=== PATIENT | male | born 1965 | race Caucasian/White ===

== ENCOUNTER 2017-06-26 16:54 | Emergency (ER) | payer BC ==
--- NOTE | 2017-06-26 17:56 | EDM.PDOC ---
ED HPI GENERAL MEDICAL PROBLEM - General Stated Complaint: WEAKNESS, PAIN IN NECK Time Seen by Provider: 06/26/17 16:54 Source of Information: Reports: Patient History Limitations: Reports: No Limitations - History of Present Illness INITIAL COMMENTS - FREE TEXT/NARRATIVE: 52 years old w m in prev healthy condition, started to take Hydroxycut, a weight loosing medication, a fwe days ago. Yesterday, he was working out side, using a sledgehammer, coming to the ed this pm because he felt some back pain, r neck pain, felt weak and tired on the computer. No N/V/D f/c or any other acute medical issues. BP 113/86 pulse 58 RR 16, pulse ox 100 on RA Temp 36.6 Onset: Today Onset Date: 06/26/17 Onset Time: 15:00 Duration: Hour(s): Location: Reports: Generalized Quality: Reports: Dull Severity: Mild Improves with: Reports: None Worsens with: Reports: None Context: Reports: Other (taking weightloosing agents) Associated Symptoms: Reports: Loss of Appetite, Weakness Posterior Chest Pain Score (Numeric/FACES): 3 - Related Data Allergies Allergy/AdvReac Type Severity Reaction Status Date / Time Penicillins Allergy Rash Verified 06/26/17 18:29 Home Meds: Home Meds Hydroxycut 1 tab PO TID 06/26/17 [History] ED ROS GENERAL - Review of Systems Review Of Systems: See Below Constitutional: Reports: Weakness, Other (dizzy off on on, minimal) HEENT: Reports: Other (lat neck dyscomfort off/on) Respiratory: Reports: No Symptoms Cardiovascular: Reports: No Symptoms Endocrine: Reports: No Symptoms GI/Abdominal: Reports: No Symptoms : Reports: No Symptoms Musculoskeletal: Reports: Muscle Pain (off and on) Skin: Reports: No Symptoms Neurological: Reports: Dizziness (off and on) Psychiatric: Reports: No Symptoms Hematologic/Lymphatic: Reports: No Symptoms Immunologic: Reports: No Symptoms ED EXAM, GENERAL - Physical Exam Exam: See Below Exam Limited By: No Limitations General Appearance: Alert, WD/WN, No Apparent Distress Eye Exam: Bilateral Eye: Normal Inspection Ears: Normal External Exam Ear Exam: Bilateral Ear: Auricle Normal Nose: Normal Inspection, Normal Mucosa, No Blood Throat/Mouth: Normal Inspection, Normal Lips, Normal Teeth, Normal Gums, Normal Oropharynx, Normal Voice, No Airway Compromise Head: Atraumatic, Normocephalic Neck: Normal Inspection, Supple, Non-Tender, Full Range of Motion Respiratory/Chest: No Respiratory Distress, Lungs Clear, Normal Breath Sounds, No Accessory Muscle Use, Chest Non-Tender Cardiovascular: Normal Peripheral Pulses, Regular Rate, Rhythm, No Edema, No Gallop, No JVD, No Murmur, No Rub Peripheral Pulses: 2+: Radial (L), Radial (R) GI/Abdominal: Normal Bowel Sounds, Soft, Non-Tender, No Organomegaly, No Distention, No Abnormal Bruit, No Mass (Male) Exam: Deferred Rectal (Males) Exam: Deferred Back Exam: Normal Inspection, Full Range of Motion Extremities: Normal Inspection, Normal Range of Motion, Non-Tender, No Pedal Edema, Normal Capillary Refill Neurological: Alert, Oriented, CN II-XII Intact, Normal Cognition, Normal Gait, Normal Reflexes, No Motor/Sensory Deficits Psychiatric: Normal Affect, Normal Mood Skin Exam: Warm, Dry, Intact, Normal Color, No Rash Lymphatic: No Adenopathy EKG INTERPRETATION EKG Date: 06/26/17 Time: 17:35 Rhythm: NSR Rate (Beats/Min): 56 [place]: Normal P-Wave: Present QRS: Normal ST-T: Normal QT: Normal Comparison: NA - No Prior EKG Course - Vital Signs Text/Narrative:: 52 years old w m in prev healthy condition, started to take Hydroxycut, a weight loosing medication, a fwe days ago. Yesterday, he was working out side, using a sledgehammer, coming to the ed this pm because he felt some back pain, r neck pain, felt weak and tired on the computer. No N/V/D f/c or any other acute medical issues. BP 113/86 pulse 58 RR 16, pulse ox 100 on RA Temp 36.6 PE: WNWD WM NAD, neg Labs: CBC, BMP WNL, CK was 229(mildly up), UDS was neg UA was neg EKG: NSR Imaging: Not indicated Impression: well check. CK mildly up Tx: None Reexam: All symptoms pt presented with subsided. Plan: D/C with instructions Last Recorded V/S: Last Vital Signs Temp 36.6 C 06/26/17 19:30 Pulse 60 06/26/17 19:30 Resp 14 06/26/17 19:30 BP 106/65 06/26/17 19:30 Pulse Ox 100 06/26/17 19:30 Orthostatic Blood Pressure [ 114/74 Supine] - Orders/Labs/Meds Orders: Active Orders 24 hr Category Date Time Status EKG Documentation Completion [RC] ASDIRECTED Care 06/26/17 17:09 Active Orthostatic Vital Signs [RC] ASDIRECTED Care 06/26/17 17:10 Active EKG 12 Lead [EK] Routine Ther 06/26/17 17:07 Ordered Labs: Laboratory Tests 06/26/17 06/26/17 06/26/17 Range/Units 17:10 17:10 17:10 WBC 5.2 (4.5-12.0) X10-3/uL RBC 4.84 (4.30-5.75) x10(6)uL Hgb 14.3 (11.5-15.5) g/dL Hct 41.4 (30.0-51.3) % MCV 85.6 (80-96) fL MCH 29.6 (27.7-33.6) pg MCHC 34.6 (32.2-35.4) g/dL RDW 12.6 (11.5-15.5) % Plt Count 144 (125-369) X10(3)uL MPV 9.5 (7.4-10.4) fL Neut % (Auto) 61.4 (46-82) % Lymph % (Auto) 28.1 (13-37) % [place] % (Auto) 8.8 (4-12) % Eos % (Auto) 1 (1.0-5.0) % Baso % (Auto) 0 (0-2) % Neut # (Auto) 3.2 (1.6-8.3) # Lymph # (Auto) 1.4 (0.6-5.0) # Barton # (Auto) 0.5 (0.0-1.3) # Eos # (Auto) 0.1 (0.0-0.8) # Baso # (Auto) 0.0 (0.0-0.2) # Sodium 139 (135-145) mmol/L Potassium 3.5 (3.5-5.3) mmol/L Chloride 104 (100-110) mmol/L Carbon Dioxide 26 (23-29) mmol/L BUN 13 (5-20) mg/dL Creatinine 1.0 (0.6-1.3) mg/dL Est Cr Clr Drug Dosing TNP Estimated GFR (MDRD) > 60 (>60) BUN/Creatinine Ratio 13.0 (9-20) Glucose 104 (80-116) mg/dL Hemoglobin A1c (4.0-6.0) % Calcium 9.3 (8.6-10.2) mg/dL Creatine Kinase 229 H (60-160) IU/L TSH, Ultra Sensitive 1.53 (0.4-5.5) nlU/mL Urine Color (YELLOW) Urine Appearance (CLEAR) Urine pH (5.0-6.5) Ur Specific [place] (1.010-1.025) Urine Protein (NEGATIVE) mg/dL Urine Glucose (UA) (NEGATIVE) mg/dL Urine Ketones (NEGATIVE) mg/dL Urine Occult Blood (NEGATIVE) Urine Nitrite (NEGATIVE) Urine Bilirubin (NEGATIVE) Urine Urobilinogen (NEGATIVE) mg/dL Ur Leukocyte Esterase (NEGATIVE) Urine RBC (0) Urine WBC (0) Ur Squamous Epith Cells (NS,R,O) Urine Bacteria (NS) Urine Opiates Screen (NEGATIVE) Ur Oxycodone Screen (NEGATIVE) Ur Propoxyphene Screen (NEGATIVE) Ur Barbituates Screen (NEGATIVE) Ur Tricyclics Screen (NEGATIVE) Ur Phencyclidine Scrn (NEGATIVE) Ur Amphetamine Screen (NEGATIVE) Urine MDMA Screen (NEGATIVE) U Benzodiazepines Scrn (NEGATIVE) U Cocaine Metab Screen (NEGATIVE) U Marijuana (THC) Screen (NEGATIVE) 06/26/17 06/26/17 06/26/17 Range/Units 17:10 18:17 18:17 WBC (4.5-12.0) X10-3/uL RBC (4.30-5.75) x10(6)uL Hgb (11.5-15.5) g/dL Hct (30.0-51.3) % MCV (80-96) fL MCH (27.7-33.6) pg MCHC (32.2-35.4) g/dL RDW (11.5-15.5) % Plt Count (125-369) X10(3)uL MPV (7.4-10.4) fL Neut % (Auto) (46-82) % Lymph % (Auto) (13-37) % [place] % (Auto) (4-12) % Eos % (Auto) (1.0-5.0) % Baso % (Auto) (0-2) % Neut # (Auto) (1.6-8.3) # Lymph # (Auto) (0.6-5.0) # Barton # (Auto) (0.0-1.3) # Eos # (Auto) (0.0-0.8) # Baso # (Auto) (0.0-0.2) # Sodium (135-145) mmol/L Potassium (3.5-5.3) mmol/L Chloride (100-110) mmol/L Carbon Dioxide (23-29) mmol/L BUN (5-20) mg/dL Creatinine (0.6-1.3) mg/dL Est Cr Clr Drug Dosing Estimated GFR (MDRD) (>60) BUN/Creatinine Ratio (9-20) Glucose (80-116) mg/dL Hemoglobin A1c 6.0 (4.0-6.0) % Calcium (8.6-10.2) mg/dL Creatine Kinase (60-160) IU/L TSH, Ultra Sensitive (0.4-5.5) nlU/mL Urine Color Yellow (YELLOW) Urine Appearance Clear (CLEAR) Urine pH 6.0 (5.0-6.5) Ur Specific [place] 1.015 (1.010-1.025) Urine Protein Negative (NEGATIVE) mg/dL Urine Glucose (UA) Normal (NEGATIVE) mg/dL Urine Ketones Negative (NEGATIVE) mg/dL Urine Occult Blood Negative (NEGATIVE) Urine Nitrite Negative (NEGATIVE) Urine Bilirubin Negative (NEGATIVE) Urine Urobilinogen Normal (NEGATIVE) mg/dL Ur Leukocyte Esterase Negative (NEGATIVE) Urine RBC 0-5 (0) Urine WBC 0-5 (0) Ur Squamous Epith Cells Rare (NS,R,O) Urine Bacteria Few H (NS) Urine Opiates Screen Negative (NEGATIVE) Ur Oxycodone Screen Negative (NEGATIVE) Ur Propoxyphene Screen Negative (NEGATIVE) Ur Barbituates Screen Negative (NEGATIVE) Ur Tricyclics Screen Negative (NEGATIVE) Ur Phencyclidine Scrn Negative (NEGATIVE) Ur Amphetamine Screen Negative (NEGATIVE) Urine MDMA Screen Negative (NEGATIVE) U Benzodiazepines Scrn Negative (NEGATIVE) U Cocaine Metab Screen Negative (NEGATIVE) U Marijuana (THC) Screen Negative (NEGATIVE) Departure - Departure Time of Disposition: 19:11 Disposition: Home, Self-Care 01 Condition: Good Clinical Impression: Dizziness, nonspecific - Discharge Information Referrals: Carmen Almaguer DIRECTOR OF COUNSELING [Primary Care Provider] - Forms: ED Department Discharge Additional Instructions: Please avoid taking Hydroxycut, increase water intake, please f/u, come back if symptoms worsen. - My Orders Last 24 Hours: My Active Orders 06/26/17 17:07 EKG 12 Lead [EK] Routine 06/26/17 17:09 EKG Documentation Completion [RC] ASDIRECTED 06/26/17 17:10 Orthostatic Vital Signs [RC] ASDIRECTED - Assessment/Plan Last 24 Hours: My Active Orders 06/26/17 17:07 EKG 12 Lead [EK] Routine 06/26/17 17:09 EKG Documentation Completion [RC] ASDIRECTED 06/26/17 17:10 Orthostatic Vital Signs [RC] ASDIRECTED
== END 2017-06-26 19:34 | disposition home or self-care (01) ==
LOC: FB.ED 16:54
DX: R42 Dizziness and giddiness (principal); Z88.0 Allergy status to penicillin
CPT/HCPCS: 36415; 80048; 80305; 81001; 82550; 83036; 84443; 85025; 93005; 99284